=== PATIENT | male | born 1985 | race Caucasian/White ===

== ENCOUNTER 2021-07-07 11:50 | Inpatient (IN) | payer MEDICAID, OTHER ==
[~2021-07-07] VITALS: Ht 172.7 cm; Wt 100.0 kg
[~2021-07-07 11:50] MED LIST: HYDR-3972 PO; NO HOME MEDS
[2021-07-07] MEDS ORDERED: normal saline 1000ML IV soln IVB ONE (12:20)
--- NOTE | 2021-07-07 12:36 | NUR ---
BG 90.
[2021-07-07 12:45] LABS: BASOPHILS % (AUTO) 0.1 % (0-1); EOSINOPHILS % (AUTO) 0.1 % (0-6); HEMOGLOBIN 14.3 g/dl (14.0-17.9); LYMPHOCYTES # (AUTO) 0.3 X10'3 (1.1-4.8); LYMPHOCYTES % (AUTO) 6.2 % (21-51); MEAN CORPUSCULAR HEMOGLOBIN 29.7 PG (27.0-31.0); MEAN CORPUSCULAR HGB CONC 33.3 g/dL (33.0-36.5); MEAN CORPUSCULAR VOLUME 89.3 FL (78-98); MONOCYTES # (AUTO) 0.5 X10'3 (0-0.9); MONOCYTES % (AUTO) 10.7 % (2-12); NEUTROPHILS # (AUTO) 3.7 X10'3 (1.8-7.7); NEUTROPHILS % (AUTO) 82.9 % (42-75); PLATELET COUNT 275 X10'3 (140-440); RED BLOOD COUNT 4.81 X10'6 (4.70-6.10); RED CELL DISTRIBUTION WIDTH 14.6 % (11.5-14.5); WHITE BLOOD COUNT 4.4 X10'3 (4.5-11.0)
[2021-07-07 13:06] LABS: ALANINE AMINOTRANSFERASE 29 U/L (12-78); ALBUMIN 3.1 G/DL (3.4-5.0); ALBUMIN/GLOBULIN RATIO 0.9 (1.1-1.5); ALKALINE PHOSPHATASE 67 IU/L (46-116); ANION GAP 12 (8-16); ASPARTATE AMINO TRANSFERASE 50 U/L (10-37); BILIRUBIN,TOTAL 0.4 MG/DL (0.1-1.0); BLOOD UREA NITROGEN 27 MG/DL (7-18); BUN/CREATININE RATIO 17.9 (5.4-32.0); CALCIUM 7.9 MG/DL (8.5-10.1); CHLORIDE 104 MMOL/L (99-107); CREATININE 1.51 MG/DL (0.60-1.10); ETHANOL < 0.010 GM/DL (0.0-0.010); GLUCOSE 98 MG/DL (70-104); POTASSIUM 4.4 MMOL/L (3.5-5.1); SODIUM 140 MMOL/L (135-145); TOTAL CARBON DIOXIDE 23.6 MMOL/L (24-32); TOTAL PROTEIN 6.7 G/DL (6.4-8.2); eGFR 53 ML/MIN
[2021-07-07 13:29] LABS: PLATELET ESTIMATE NORMAL; TOTAL CELLS COUNTED 100
--- NOTE | 2021-07-07 13:35 | NUR ---
Pt resting, no apparent distress or needs. Responds to voice. Answers questions appropriately
[2021-07-07] MEDS ORDERED: piperacillin/tazo 3.375gm/50ml 50 ML IV ONE (13:40)
[2021-07-07] MEDS ORDERED: ondansetron/PF 4mg/2ml inj IV PRN (13:55)
[2021-07-07] MEDS ORDERED: acetaminophen 325mg tablet PO PRN (13:55)
[2021-07-07] MEDS ORDERED: magnesium hydroxide 30ml (MOM) UD suspension PO PRN (13:55)
[2021-07-07] MEDS ORDERED: POTASSIUM BICARB 20meq eff tab 20 MEQ TABLET.EFF PO PRN ×2 (13:55)
[2021-07-07] MEDS ORDERED: magnesium 2GM in 50ml NS 50 ML IV PRN (13:55)
[2021-07-07] MEDS ORDERED: mag hydrox/Alum hydrox/simeth 30ml oral suspension PO PRN (13:55)
[2021-07-07] MEDS ORDERED: magnesium 4gm in 100ml NS 100 ML IV PRN (13:55)
[2021-07-07] MEDS ORDERED: magnesium Cl slow-release 64mg tablet PO PRN (13:55)
[2021-07-07] MEDS ORDERED: potassium CL 10mEq/100ml bag 100 ML IV PRN (13:55)
--- NOTE | 2021-07-07 14:25 | NUR ---
Pt sleeping, no apparent distress or needs at this time.
[2021-07-07] MEDS: normal saline 1000ml 1,000 ML IV SCH (14:35)
--- NOTE | 2021-07-07 15:42 | NUR ---
Pt resting comfortably. No apparent distress or needs. Responsive to voice.
[2021-07-07] MEDS: piperacillin/tazo 4.5gm/100ml 100 ML IV SCH (16:00)
[2021-07-07 16:04] LABS: MAGNESIUM 1.5 MG/DL (1.5-2.4); POTASSIUM 4.3 MMOL/L (3.5-5.1)
--- NOTE | 2021-07-07 16:41 | NUR ---
On phone with pharmacy to find Zosyn 4.5gm.
--- NOTE | 2021-07-07 17:49 | NUR ---
Paged Dr. Ellison [facility] Elida RN ext [phone] RE: Maria Eugenia Dangelo. Patient already here from ER. He is alert and oriented, asking for food. Order says NPO. Can we get order for diet tonight?
--- NOTE | 2021-07-07 18:58 | NUR ---
Patient in room PCU 3027. I have received report from Elida PALACIOS and had the opportunity to ask questions and assume patient care.
--- NOTE | 2021-07-07 19:00 | NUR ---
Patient in room PCU 3027. I have received report from magy sawant and had the opportunity to ask questions and assume patient care.
--- NOTE | 2021-07-07 19:15 | NUR ---
Received report from Francisco Javier PALACIOS in the ER. Pt arrived on the unit via wheelchair and was able to ambulate with her cane to her bed. VSS, on 3L O2 via nasal cannula, IV saline locked, with no signs of distress. Will continue to monitor. Addendum: 07/08/21 at 0622 by Clarice Alvarez RN Note on incorrect pt.
[2021-07-07] MEDS: K and/or MAG REPLACEMENT MC SCH (20:00)
[2021-07-07] MEDS: docusate sod 100mg capsule PO SCH (20:00)
[2021-07-07] MEDS: albuterol 2.5 MG/3 ML nebule NEB SCH ×2 (21:37→23:18)
[2021-07-07 22:00] VITALS: BP 112/55
[2021-07-08] VITALS (7 sets, daily range): BP systolic 108–139; BP diastolic 50–92
[2021-07-08] MEDS: piperacillin/tazo 4.5gm/100ml 100 ML IV SCH ×4 (00:39→23:21)
[2021-07-08] MEDS: normal saline 1000ml 1,000 ML IV SCH ×3 (00:39→14:10)
[2021-07-08] MEDS: albuterol 2.5 MG/3 ML nebule NEB SCH ×6 (03:03→23:12)
[2021-07-08 06:01] LABS: BASOPHILS % (AUTO) 0.2 % (0-1); EOSINOPHILS % (AUTO) 0.3 % (0-6); HEMATOCRIT 35.3 % (42.0-52.0); HEMOGLOBIN 12.2 g/dl (14.0-17.9); LYMPHOCYTES # (AUTO) 1.2 X10'3 (1.1-4.8); LYMPHOCYTES % (AUTO) 12.8 % (21-51); MEAN CORPUSCULAR HEMOGLOBIN 30.9 PG (27.0-31.0); MEAN CORPUSCULAR HGB CONC 34.7 g/dL (33.0-36.5); MEAN CORPUSCULAR VOLUME 89.1 FL (78-98); MEAN PLATELET VOLUME 8.5 FL (7.4-10.4); MONOCYTES # (AUTO) 0.7 X10'3 (0-0.9); MONOCYTES % (AUTO) 7.5 % (2-12); NEUTROPHILS # (AUTO) 7.2 X10'3 (1.8-7.7); NEUTROPHILS % (AUTO) 79.2 % (42-75); PLATELET COUNT 227 X10'3 (140-440); RED BLOOD COUNT 3.96 X10'6 (4.70-6.10); RED CELL DISTRIBUTION WIDTH 14.9 % (11.5-14.5); WHITE BLOOD COUNT 9.1 X10'3 (4.5-11.0)
[2021-07-08 06:12] LABS: ALBUMIN 2.5 G/DL (3.4-5.0); ANION GAP 7 (8-16); BLOOD UREA NITROGEN 21 MG/DL (7-18); BUN/CREATININE RATIO 18.9 (5.4-32.0); CALCIUM 7.8 MG/DL (8.5-10.1); CHLORIDE 106 MMOL/L (99-107); CREATININE 1.11 MG/DL (0.60-1.10); GLUCOSE 109 MG/DL (70-104); MAGNESIUM 1.9 MG/DL (1.5-2.4); POTASSIUM 3.7 MMOL/L (3.5-5.1); SODIUM 140 MMOL/L (135-145); TOTAL CARBON DIOXIDE 26.9 MMOL/L (24-32); eGFR 75 ML/MIN
--- NOTE | 2021-07-08 06:20 | NUR ---
Problems reprioritized. Patient report given, questions answered & plan of care reviewed with Yancy PALACIOS.
--- NOTE | 2021-07-08 06:20 | NUR ---
Problems reprioritized. Patient report given, questions answered & plan of care reviewed with rodolfo sawant.
--- NOTE | 2021-07-08 06:30 | NUR ---
Patient in room PCU 3027. I have received report from PHILIP Oneil and had the opportunity to ask questions and assume patient care.
[2021-07-08] MEDS: docusate sod 100mg capsule PO SCH ×2 (08:00→20:00)
[2021-07-08] MEDS: K and/or MAG REPLACEMENT MC SCH ×2 (08:00→20:00)
[2021-07-08] MEDS: enoxaparin 40mg/0.4ml syringe SUBCUT SCH (08:49)
[2021-07-08] MEDS: azithromycin 250mg tablet PO SCH (17:43)
[2021-07-09 02:00] VITALS: BP 156/85
[2021-07-09] MEDS: albuterol 2.5 MG/3 ML nebule NEB SCH ×2 (03:20→07:06)
[2021-07-09] MEDS: normal saline 1000ml 1,000 ML IV SCH (04:07)
[2021-07-09 06:00] VITALS: BP 148/78
[2021-07-09 06:58] LABS: BASOPHILS % (AUTO) 0.2 % (0-1); EOSINOPHILS % (AUTO) 0.4 % (0-6); HEMATOCRIT 36.1 % (42.0-52.0); HEMOGLOBIN 12.1 g/dl (14.0-17.9); LYMPHOCYTES % (AUTO) 11.4 % (21-51); MEAN CORPUSCULAR HGB CONC 33.5 g/dL (33.0-36.5); MEAN CORPUSCULAR VOLUME 89.5 FL (78-98); MEAN PLATELET VOLUME 8.2 FL (7.4-10.4); MONOCYTES # (AUTO) 0.4 X10'3 (0-0.9); MONOCYTES % (AUTO) 5.2 % (2-12); NEUTROPHILS # (AUTO) 7.1 X10'3 (1.8-7.7); NEUTROPHILS % (AUTO) 82.8 % (42-75); PLATELET COUNT 231 X10'3 (140-440); RED BLOOD COUNT 4.03 X10'6 (4.70-6.10); RED CELL DISTRIBUTION WIDTH 15.2 % (11.5-14.5); WHITE BLOOD COUNT 8.5 X10'3 (4.5-11.0)
[2021-07-09 07:36] LABS: ALBUMIN 2.5 G/DL (3.4-5.0); ANION GAP 6 (8-16); BLOOD UREA NITROGEN 8 MG/DL (7-18); BUN/CREATININE RATIO 9.4 (5.4-32.0); CALCIUM 8.3 MG/DL (8.5-10.1); CHLORIDE 108 MMOL/L (99-107); CREATININE 0.85 MG/DL (0.60-1.10); GLUCOSE 109 MG/DL (70-104); MAGNESIUM 1.9 MG/DL (1.5-2.4); POTASSIUM 3.7 MMOL/L (3.5-5.1); SODIUM 139 MMOL/L (135-145); TOTAL CARBON DIOXIDE 24.9 MMOL/L (24-32); eGFR > 90 ML/MIN
[2021-07-09] MEDS: K and/or MAG REPLACEMENT MC SCH (08:00)
[2021-07-09] MEDS: piperacillin/tazo 4.5gm/100ml 100 ML IV SCH (08:12)
[2021-07-09] MEDS: docusate sod 100mg capsule PO SCH (08:12)
[2021-07-09] MEDS: azithromycin 250mg tablet PO SCH (08:12)
[2021-07-09] MEDS: enoxaparin 40mg/0.4ml syringe SUBCUT SCH (08:13)
[2021-07-09] MEDS ORDERED: LEVO750T46 PO (10:19)
--- NOTE | 2021-07-09 10:46 | NUR ---
Met with patient in regards to substance use and to see if patient is interested in resources for treatment options. Patient would like to go to inpatient rehab but is waiting to be approved for partnership. I talked to patient about outpatient treatment options until he gets his insurance. Patient has my card to call me with any questions.
--- NOTE | 2021-07-09 11:04 | NUR ---
patient refused to go down to lobby via wheelchair, walked down accompanied by spooler rubber strand.
== END 2021-07-09 11:05 | disposition home or self-care (01) | DRG 720 ==
LOC: ER 11:51 → ED HOLD 14:02 → PCU 3S 17:37
PROVIDERS: ADMIT Family Medicine; ATTEND Family Medicine
DX: A41.9 Sepsis, unspecified organism (principal); J96.01 Acute respiratory failure with hypoxia; N17.0 Acute kidney failure with tubular necrosis; I21.A1 Myocardial infarction type 2; J81.1 Chronic pulmonary edema; J18.9 Pneumonia, unspecified organism; T40.411A Poisoning by fentanyl or fentanyl analogs, accidental (unintentional), initial encounter; G89.29 Other chronic pain; M54.9 Dorsalgia, unspecified; Z20.822 Contact with and (suspected) exposure to COVID-19; F17.210 Nicotine dependence, cigarettes, uncomplicated; F12.90 Cannabis use, unspecified, uncomplicated; F11.90 Opioid use, unspecified, uncomplicated; Z56.0 Unemployment, unspecified; Y92.89 Other specified places as the place of occurrence of the external cause; Z71.6 Tobacco abuse counseling
CPT/HCPCS: 36415; 71045; 80048; 80053; 80320; 82948; 83605; 83735; 84132; 84145; 84484; 85007; 85025; 87040; 87081; 87502; 87503; 87635; 93005; 94640; 94760; 99291; G0378; J1650; J2543; J7030

== ENCOUNTER 2021-07-14 12:36 | Emergency (ER) | payer MEDICAID, OTHER ==
[~2021-07-14] VITALS: Ht 172.7 cm; Wt 95.5 kg
[~2021-07-14 12:36] MED LIST changes: -HYDR-3972 PO; +LEVO750T46 PO; -NO HOME MEDS
[2021-07-14 12:40] VITALS: BP 149/100
== END 2021-07-14 15:15 ==
LOC: ER 12:36
DX: F11.10 Opioid abuse, uncomplicated (principal); Z87.81 Personal history of (healed) traumatic fracture
CPT/HCPCS: 99282

== ENCOUNTER 2022-04-26 17:13 | Emergency (ER) | payer MEDICAID | END 2022-04-26 18:12 | disposition left against medical advice (07) | LOC: ER 17:13 | DX: T40.411D Poisoning by fentanyl or fentanyl analogs, accidental (unintentional), subsequent encounter (principal); Z53.21 Procedure and treatment not carried out due to patient leaving prior to being seen by health care provider; R41.82 Altered mental status, unspecified; Y92.89 Other specified places as the place of occurrence of the external cause | CPT/HCPCS: 93005 ==

== ENCOUNTER 2024-05-12 17:24 | Emergency (ER) | payer SELFPAY ==
[~2024-05-12] VITALS: Ht 172.7 cm; Wt 126.4 kg
[2024-05-12 17:29] VITALS: TEMP 98.8
[2024-05-12 18:30] LABS: BASOPHILS % (AUTO) 0.1 % (0-1); EOSINOPHILS % (AUTO) 0.1 % (0-6); HEMATOCRIT 42.6 % (42.0-52.0); HEMOGLOBIN 14.3 g/dl (14.0-17.9); LYMPHOCYTES # (AUTO) 0.8 X10'3 (1.1-4.8); LYMPHOCYTES % (AUTO) 13.7 % (21-51); MEAN CORPUSCULAR HEMOGLOBIN 31.8 PG (27.0-31.0); MEAN CORPUSCULAR HGB CONC 33.6 g/dL (33.0-36.5); MEAN CORPUSCULAR VOLUME 94.8 FL (78-98); MEAN PLATELET VOLUME 7.6 FL (7.4-10.4); MONOCYTES # (AUTO) 0.4 X10'3 (0-0.9); MONOCYTES % (AUTO) 6.1 % (2-12); NEUTROPHILS # (AUTO) 4.9 X10'3 (1.8-7.7); PLATELET COUNT 396 X10'3 (140-440); RED BLOOD COUNT 4.49 X10'6 (4.70-6.10); RED CELL DISTRIBUTION WIDTH 18.7 % (11.5-14.5); WHITE BLOOD COUNT 6.2 X10'3 (4.5-11.0)
[2024-05-12] MEDS ORDERED: NO HOME MEDS (19:10)
[2024-05-12 19:20] LABS: ALANINE AMINOTRANSFERASE 129 U/L (12-78); ALBUMIN 4.2 G/DL (3.4-5.0); ALBUMIN/GLOBULIN RATIO 1.1 (1.1-1.5); ALKALINE PHOSPHATASE 99 IU/L (46-116); ANION GAP 7 (8-16); ASPARTATE AMINO TRANSFERASE 145 U/L (10-37); BILIRUBIN,TOTAL 0.3 MG/DL (0.1-1.0); BLOOD UREA NITROGEN 15 MG/DL (7-18); BUN/CREATININE RATIO 12.9 (10.0-20.0); CALCIUM 8.7 MG/DL (8.5-10.1); CHLORIDE 106 MMOL/L (99-107); CREATININE 1.16 MG/DL (0.60-1.10); ETHANOL < 10 MG/DL (<10); GLUCOSE 138 MG/DL (70-104); SALICYLATE 1.5 MG/DL (4.0-20.0); SODIUM 143 MMOL/L (135-145); TOTAL CARBON DIOXIDE 29.8 MMOL/L (24-32); TOTAL PROTEIN 8.1 G/DL (6.4-8.2); eCRCL 84 ML/MIN; eGFR 70 ML/MIN
[2024-05-12 19:25] LABS: BILIRUBIN,DIRECT 0.1 MG/DL (0-0.3); POTASSIUM 4.8 MMOL/L (3.5-5.1)
[2024-05-12 19:31] LABS: BILIRUBIN,URINE NEGATIVE (Neg); CLARITY,URINE CLEAR (Clear); COLOR,URINE YELLOW (Yellow); GLUCOSE, URINE 100 mg/dl (Neg); KETONES,URINE NEGATIVE (Neg); LEUKOCYTE ESTERASE ,URINE SMALL (Neg); NITRITES, URINE NEGATIVE (Neg); OCCULT BLOOD,URINE TRACE-INTACT (Neg); PROTEIN,URINE 30 mg/dl (Neg); UROBILINOGEN,URINE 0.2 E.U/dL (0.2-1.0)
[2024-05-12 19:31] LABS: ACETAMINOPHEN < 2.0 UG/ML (10-30)
[2024-05-12 19:41] VITALS: BP 117/82; PULSE 91; RESP 17; O2SAT 98
[2024-05-12 19:42] LABS: UA COLLECTION TYPE NON-SPECIFIED
[2024-05-12 19:49] LABS: WBC,URINE 30-50 /HPF (0-4)
[2024-05-12 19:50] LABS: BACTERIA,URINE FEW /HPF (Neg); SQUAMOUS EPITHELIAL CELL,UR NONE SEEN /LPF (FEW)
[2024-05-12 19:56] LABS: URINE AMPHETAMINE SCREEN NEGATIVE (Neg); URINE BARBITUATE SCREEN NEGATIVE (Neg); URINE BENZODIAZEPINES SCREEN NEGATIVE (Neg); URINE CANNABINOID SCREEN POSITIVE (Neg); URINE COCAINE SCREEN NEGATIVE (Neg); URINE METHADONE SCREEN NEGATIVE (Neg); URINE OPIATE SCREEN NEGATIVE (Neg); URINE PHENCYCLIDINE SCREEN NEGATIVE (Neg)
== END 2024-05-12 19:41 | disposition home or self-care (01) ==
LOC: ER 17:24
DX: T40.411A Poisoning by fentanyl or fentanyl analogs, accidental (unintentional), initial encounter (principal); R42 Dizziness and giddiness; F12.90 Cannabis use, unspecified, uncomplicated; F11.90 Opioid use, unspecified, uncomplicated; Z98.890 Other specified postprocedural states; Z56.0 Unemployment, unspecified; Y92.89 Other specified places as the place of occurrence of the external cause
CPT/HCPCS: 36415; 80048; 80076; 80305; 80320; 80329; 81001; 82948; 85025; 87088; 93005; 99285